=== PATIENT | male | born 1980 | race Caucasian/White ===

== ENCOUNTER 2022-01-09 13:58 | Emergency (ER) | payer OTHER, SELFPAY ==
[2022-01-09 13:59] VITALS: BP 126/96; PULSE 82; RESP 18; TEMP 36.9; O2SAT 95; BMI 30.7
--- NOTE | 2022-01-09 15:06 | EX.ED.DYSGE1 ---
HPI History of Present Illness Chief Complaint: Allergic Reaction Informant: patient Narrative Narrative: 41-year-old male states that 1 week ago he was stung by a bee. He states he had a local reaction but nothing further. Today he was mowing the lawn when he got stung on his right arm neck head. He states that almost immediately he began to have some shortness of breath and throat swelling He notes the bottom of his feet were tingling. He was given Benadryl. He states he is feeling significantly better at this time. He has had no prior significant reactions to being stung. PFSH PFSH Home Medications epinephrine 0.3 mg/0.3 mL injection, auto-injector (EpiPen) 0.3 mg (0.3 mL) IM X1 #2 ea 01/09/22 [Rx Last Taken Unknown] prednisone 20 mg tablet 60 mg PO DAILY #12 TABLETS 01/09/22 [Rx Last Taken Unknown] Allergy/AdvReac Type Severity Reaction Status Date / Time bee venom protein (honey bee) Allergy Shortness Verified 01/09/22 14:03 of breath Surgical History History of colon surgery Social History (Updated 01/09/22 @ 15:[address] Shaji Aponte DO) Smoking Status: Never smoker substance use type: does not use ROS ROS ED Constitutional Constitutional ED: Denies chills, fever(s) or weight loss Eyes Eyes: Denies change in vision or diplopia ENT ENT ED: Reports other Details: Throat swelling ; Denies ear pain, rhinorrhea or sore throat Cardiovascular Cardiovascular: Denies chest pain, orthopnea, palpitations or racing heartbeat Respiratory/Chest Respiratory/Chest: Reports dyspnea; Denies cough or orthopnea Gastrointestinal Gastrointestinal: Denies abdominal pain, diarrhea, nausea or vomiting Genitourinary Genitourinary ED: Denies dysuria, hematuria or urinary frequency Musculoskeletal Musculoskeletal: Denies arthralgias or myalgias Integumentary Denies abscess or rash Neurologic Neurologic: Reports paresthesias; Denies headache(s) or weakness Psychiatric Psychiatric: Denies anxiety, depression, suicidal ideation or suicidal thoughts Endocrine Endocrinology: Denies polydipsia, polyphagia or polyuria Allergic/Immunologic Allergic/Immunologic ED: Denies mouth swelling, tongue swelling or urticaria EXAM Physical Exam Const Vital Signs: 01/09/22 13:59 Temperature 98.4 F Temperature Source Temporal Pulse Rate 82 Respiratory Rate 18 Blood Pressure 126/96 H Blood Pressure Mean 106 Pulse Ox 95 Oxygen Delivery Method Room Air Positive well nourished and well developed General Appearance ED: well developed HEENT Reports normocephalic, head/scalp atraumatic and moist mucous membranes Eyes PERRL and EOMs intact bilaterally Neck no lymphadenopathy, supple and no JVD Resp normal respiratory effort and clear to auscultation bilaterally Cardio regular rate, regular rhythm and no murmurs GI normal to inspection, nondistended, normoactive bowel sounds and non-tender Palpation: soft Back/Spine no CVA tenderness and normal ROM Extremity normal to inspection General Extremety ED: Negative for edema General Extremity: Negative for edema Neuro oriented x3 and CN's II-XII intact bilaterally Sensorium / Orientation: alert Motor Exam: strength 5/5 throughout Psych mental status grossly normal Mood & Affect: Negative for depressed or tearful Skin no rashes or lesions noted and no wounds MDM MDM MDM Narrative Medical decision making narrative: Patient had previously received Benadryl. I administered prednisone and Pepcid and he was observed. I will write for him to have a few days of prednisone as well as an EpiPen. Return if worsening or concerns Discharge Plan Triage Chief Complaint: Allergic Reaction ED Provider: Shaji Aponte Dx/Rx/DC Orders Clinical Impression: Bee sting reaction Instructions: ED BEE STING General Allergic Rxn Prescriptions: New prednisone 20 mg tablet 60 mg PO DAILY Qty: 12 0RF epinephrine [EpiPen] 0.3 mg/0.3 mL auto-injector 0.3 mg IM X1 Qty: 2 0RF Primary Care Provider: Caleb Marshall Referrals: Caleb Marshall DO [Primary Care Provider] - As Needed Disposition Disposition: Home, Self Care
[2022-01-09] MEDS: predniSONE 20 MG Tablet 60 MG PO (15:15)
[2022-01-09] MEDS: Famotidine 20 MG Tablet 40 MG PO (15:21)
[2022-01-09 15:50] VITALS: BP 139/76; PULSE 62; RESP 15; O2SAT 98
== END 2022-01-09 15:51 | disposition home or self-care (01) ==
PROVIDERS: Emergency Provider Emergency Medicine; PCP Family Medicine; Visit Provider Emergency Medicine
DX: T63.444A Toxic effect of venom of bees, undetermined, initial encounter (principal)
CPT/HCPCS: 99284